=== PATIENT | male | born 1990 | race Caucasian/White ===

== ENCOUNTER 2017-08-18 12:14 | Emergency (ER) | payer SELFPAY ==
[2017-08-18 12:16] VITALS: BP 139/69; PULSE 91; RESP 18; TEMP 36.4; O2SAT 98; BMI 20.9
--- NOTE | 2017-08-18 12:28 | RAD_ITS ---
STUDY: X-RAY - RIGHT HAND, ATTENTION 3rd FINGER REASON FOR EXAM: Male, 27 years old. RT MIDDLE FINGER, CAUGHT HAND IN [facility], [facility]. TECHNIQUE: 3 view(s) of the finger were obtained. COMPARISON: None. FINDINGS: Normal metacarpal head. Normal metacarpophalangeal joint. Normal proximal phalanx. Normal middle phalanx. There is a fracture at the tip of the distal phalanx with overlying soft tissue defect and swelling. Normal proximal interphalangeal joint. Normal distal interphalangeal joint. RAD/Finger(s) Min 2 Views IMPRESSION: Distal phalangeal fracture. Electronically Signed: John Castellanos MD at 12:53 EDT Tel , Service support ,
[2017-08-18] MEDS: Bupivacaine Mpf 0.5% 30 ML VIAL INFILT (12:40)
[2017-08-18] MEDS: Ondansetron 4 MG/2 ML Vial IV (13:01)
[2017-08-18] MEDS: Morphine 4 MG/ML Syringe IV (13:01)
[2017-08-18] MEDS: Cefazolin 1 GM/50 ML BAG IV (13:18)
--- NOTE | 2017-08-18 14:00 | ED.VISSUMM ---
- ER Visit Summary Date of Service: 08/18/17 Chief Complaint: Laceration History of Present Illness: The patient is a 27 M with no primary care physician. He is left-hand dominant. He reports that he reached under the lawnmower while it was running and cut his right middle finger. He has throbbing pain is 10 out of 10 at worst and 8 out of 10 currently. Is worsened by movement and relieved by rest. He does have paresthesias here. His tetanus is up-to-date. Physical Examination: Vitals: Stable. Afebrile. General: Well-nourished and well-developed. Head: Normocephalic atraumatic. Neck: Supple, no lymphadenopathy. No JVD. Nontender. Cardiovascular: Regular rate and rhythm. No murmurs. Respiratory: No respiratory distress. Clear to auscultation bilaterally. Abdominal: Soft, nontender, nondistended, normal bowel sounds. No guarding, rebound, or peritoneal signs. Back: Nontender. Extremities: Near amputation of the finger pad of his right middle finger. There is a 2 cm laceration with a 1 cm connecting stalk. The tissue is not dusky. Skin: Normal color, no rash. Neurologic: Alert and oriented ?3. Cranial nerves II through XII are intact. Normal strength and sensation. Psych: Normal affect. Test Results: X-ray does show a minimal tuft fracture. Emergency Department Course and Treatment: Patient had an IV placed. He was given morphine and Zofran IV. He was given a dose of Ancef IV. He had his wound anesthetized and repaired. He tolerated it well. Treatment Plan: The patient was discussed with Dr. Travis, a hand surgeon at [facility], who looked at the x-ray and pictures of the laceration. There is concerned that this tissue would not be viable. Patient will be discharged with [place] and Keflex. Instructed to follow-up with the hand surgeon tomorrow for repeat exam. Return to the emergency department for any worsening symptoms. Disposition: To home in improved and stable condition. Impression: 1. Partial amputation right middle fingertip, 2 cm, repaired. Procedure note: Wound was cleansed with chlorhexidine soap. Anesthetized with bupivacaine using a digital block. Copiously irrigated with normal saline. Wound was explored multiple pieces of grass were removed. It was closed with 6 simple interrupted 4-0 ethilon sutures. The patient tolerated it well. This note was generated with [employer] dictation software. It may contain incorrect words, spelling, and punctuation that were not noted in review of the chart prior to signing ED Disposition - Plan for ED Patient: Chief Complaint: Laceration Instructions: ED Fx Finger Open Prescriptions: Cephalexin [Keflex] 500 mg PO Q6 #40 capsule Hydrocodone/Acetaminophen [[place] 5-325 Tablet] 1 - 2 each PO 4X/DAY PRN PRN 5 Days #20 tablet PRN Reason: Pain Referrals: Doctor,Your [STAFF PHYSICIAN] - 3-5 Days
--- NOTE | 2017-08-18 14:03 | ED.DCSUM_ITS ---
- ER Visit Summary Date of Service: 08/18/17 Chief Complaint: Laceration History of Present Illness: The patient is a 27 M with no primary care physician. He is left-hand dominant. He reports that he reached under the lawnmower while it was running and cut his right middle finger. He has throbbing pain is 10 out of 10 at worst and 8 out of 10 currently. Is worsened by movement and relieved by rest. He does have paresthesias here. His tetanus is up-to-date. Physical Examination: Vitals: Stable. Afebrile. General: Well-nourished and well-developed. Head: Normocephalic atraumatic. Neck: Supple, no lymphadenopathy. No JVD. Nontender. Cardiovascular: Regular rate and rhythm. No murmurs. Respiratory: No respiratory distress. Clear to auscultation bilaterally. Abdominal: Soft, nontender, nondistended, normal bowel sounds. No guarding, rebound, or peritoneal signs. Back: Nontender. Extremities: Near amputation of the finger pad of his right middle finger. There is a 2 cm laceration with a 1 cm connecting stalk. The tissue is not dusky. Skin: Normal color, no rash. Neurologic: Alert and oriented ?3. Cranial nerves II through XII are intact. Normal strength and sensation. Psych: Normal affect. Test Results: X-ray does show a minimal tuft fracture. Emergency Department Course and Treatment: Patient had an IV placed. He was given morphine and Zofran IV. He was given a dose of Ancef IV. He had his wound anesthetized and repaired. He tolerated it well. Treatment Plan: The patient was discussed with Dr. Travis, a hand surgeon at [facility], who looked at the x-ray and pictures of the laceration. There is concerned that this tissue would not be viable. Patient will be discharged with [place] and Keflex. Instructed to follow-up with the hand surgeon tomorrow for repeat exam. Return to the emergency department for any worsening symptoms. Disposition: To home in improved and stable condition. Impression: 1. Partial amputation right middle fingertip, 2 cm, repaired. Procedure note: Wound was cleansed with chlorhexidine soap. Anesthetized with bupivacaine using a digital block. Copiously irrigated with normal saline. Wound was explored multiple pieces of grass were removed. It was closed with 6 simple interrupted 4 -0 ethilon sutures. The patient tolerated it well. This note was generated with [employer] dictation software. It may contain incorrect words, spelling, and punctuation that were not noted in review of the chart prior to signing ED Disposition - Plan for ED Patient: Chief Complaint: Laceration Instructions: ED Fx Finger Open Prescriptions: Cephalexin [Keflex] 500 mg PO Q6 #40 capsule Hydrocodone/Acetaminophen [[place] 5-325 Tablet] 1 - 2 each PO 4X/DAY PRN PRN 5 Days #20 tablet PRN Reason: Pain Referrals: Doctor,Your [STAFF PHYSICIAN] - 3-5 Days
[2017-08-18 14:43] VITALS: BP 128/70; PULSE 84; RESP 18
== END 2017-08-18 14:45 | disposition home or self-care (01) ==
PROVIDERS: Emergency Provider Emergency Medicine
DX: S68.122A Partial traumatic metacarpophalangeal amputation of right middle finger, initial encounter (principal); S62.632A Displaced fracture of distal phalanx of right middle finger, initial encounter for closed fracture; W26.8XXA Contact with other sharp object(s), not elsewhere classified, initial encounter; Y93.9 Activity, unspecified; Y92.9 Unspecified place or not applicable
CPT/HCPCS: 12001; 73140; 96365; 96374; 96375; 99284; A4216; J2405

== ENCOUNTER → 2019-11-26 14:15 | Outpatient (CLI) | payer MEDICARE, SELFPAY | PROVIDERS: Visit Provider Family Medicine | DX: Z11.59 Encounter for screening for other viral diseases (principal) | CPT/HCPCS: 87635; U0003 ==

== ENCOUNTER → 2019-12-30 10:00 | Outpatient (CLI) | payer MEDICARE, SELFPAY | PROVIDERS: Referring Provider Family Medicine; Visit Provider Family Medicine | DX: Z03.818 Encounter for observation for suspected exposure to other biological agents ruled out (principal) | CPT/HCPCS: 87635; U0003 ==

== ENCOUNTER → 2020-02-12 14:52 | Outpatient (CLI) | payer MEDICARE, SELFPAY | PROVIDERS: Referring Provider Family Medicine; Visit Provider Family Medicine | DX: Z03.818 Encounter for observation for suspected exposure to other biological agents ruled out (principal) | CPT/HCPCS: 87635; U0003 ==

== ENCOUNTER → 2020-02-15 07:45 | Outpatient (REF) | payer MEDICARE, SELFPAY | LOC: LABSPEC 07:45 | PROVIDERS: PCP Family Medicine; Referring Provider Family Medicine; Visit Provider Family Medicine | DX: U07.1 COVID-19 (principal) | CPT/HCPCS: 87635; U0003 ==

== ENCOUNTER → 2020-05-20 12:30 | Outpatient (CLI) | payer MEDICARE, SELFPAY | PROVIDERS: PCP Family Medicine; Visit Provider Family Medicine | DX: Z23 Encounter for immunization (principal) | CPT/HCPCS: 87635; U0005; U0003 ==

== ENCOUNTER → 2021-03-13 11:20 | Outpatient (CLI) | payer SELFPAY ==
--- NOTE | 2021-03-13 13:41 | US_ITS ---
STUDY: SCROTUM ULTRASOUND REASON FOR EXAM: Male, 30 years old. TESTICULAR PAIN TECHNIQUE: Ultrasound evaluation of the scrotum was performed with color Doppler and static montgomery-scale imaging. COMPARISON: None. FINDINGS: RIGHT TESTICLE INTRATESTICULAR: There is a normal size of the right testicle. There is a homogenous echotexture. There is normal arterial and normal venous vascularity. There is no demonstrated right testicular mass or cyst. EXTRATESTICULAR: Localized enlargement of the epididymal tail. There is increased (hyperemic) vascularity of the epididymal tail. There is no demonstrated epididymal cystic structure. There is no demonstrated hydrocele. There is no demonstrated varicocele. There is no demonstrated extratesticular mass or cyst. LEFT TESTICLE INTRATESTICULAR: There is a normal size of the left testicle. There is a homogenous echotexture. There is normal arterial and normal venous vascularity. There is no demonstrated left testicular mass or cyst. EXTRATESTICULAR: The epididymis is normal in size. There is normal vascularity of the epididymis. There is no demonstrated epididymal cystic structure. There is no demonstrated hydrocele. There is no demonstrated varicocele. There is no demonstrated extratesticular mass or cyst. US/Testicular with Arterial Flow IMPRESSION: Localized thickening and hyperemia of right epididymal tail suggesting epididymitis. Given localized nature, follow-up ultrasound recommended to ensure involution. Electronically Signed: Howie Lucero MD ([place]) at 15:00 EST , Service support ,
--- NOTE | 2021-03-13 13:46 | US_ITS ---
EXAM: US PELVIS TRANSABDOMINAL, urinary bladder CLINICAL INDICATION: HEMATURIA UNSPECIFIED TECHNIQUE: Real-time complete pelvic ultrasound with image documentation. This report was created using [employer] report generation technology. COMPARISON: None. FINDINGS: PROSTATE: Prostate calcifications. BLADDER: Unremarkable as visualized, although not well distended on prevoid images. No significant post void residual volume following voiding. US/Post Void Residual Bladder IMPRESSION: No bladder calculi or significant bladder wall thickening seen. Electronically Signed: Howie Lucero MD ([place]) at 15:04 EST , Service support ,
[2021-03-13 16:58] LABS: HIV - WCH Non-Reactive (Nonreactive)
[2021-03-13 17:02] LABS: Chlamydia Trachomatis by PCR POSITIVE (Negative); Neisserai gonorrhoeae by PCR Negative (Negative); Probe Check PASS; Sample Adequacy Control PASS; Specimen Processing Control PASS
== END ==
PROVIDERS: PCP Family Medicine; Visit Provider Nurse Practitioner Family
DX: N50.811 Right testicular pain (principal); R31.9 Hematuria, unspecified; N50.89 Other specified disorders of the male genital organs
CPT/HCPCS: 36415; 51798; 76870; 86703; 87491; 87591; 93976

== ENCOUNTER 2021-03-14 11:29 | Emergency (ER) | payer OTHER, SELFPAY ==
[2021-03-14 11:29] VITALS: BP 147/92; PULSE 116; RESP 18; TEMP 36.4; O2SAT 97; BMI 21.1
--- NOTE | 2021-03-14 12:32 | EX.ED.DYSGE1 ---
HPI History of Present Illness Chief Complaint: Complaint Informant: patient Narrative Narrative: 30-year-old male presenting to the emergency room with a chief complaint of testicular pain. He tells me that 6 days ago he began to have a hard mass on his right testicle that is painful. He states that yesterday he went to a doctor's group thinking there will be a urologist there and saw a nurse practitioner who sent him up to the hospital to get an testicular and bladder ultrasound. He tells me that it demonstrated a large mass and he is trying to be proactive and get this cut out. He states that he called Dr. Nuñez's office today and was aggressive with them and they told him to come to emergency. He denies any fevers. He is sexually active. PFSH PFSH Medical History no medical history Home Medications cephalexin 500 mg PO Q6 #40 capsule 08/18/17 [Rx Last Taken Unknown] hydrocodone-acetaminophen [[place] 5-325 Tablet] 1 - 2 ea PO 4X/DAY PRN PRN 5 Days #20 tab 08/18/17 [Rx Last Taken Unknown] doxycycline monohydrate 100 mg PO BID #20 capsule 03/14/21 [Rx Last Taken Unknown] ibuprofen 600 mg PO Q8H PRN PRN #20 tablet 03/14/21 [Rx Last Taken Unknown] Allergy/AdvReac Type Severity Reaction Status Date / Time No Known Allergies Allergy Verified 03/14/21 11:31 Social History (Updated 03/14/21 @ 12:[address] Dick Adame, DO) current gender identity: male Smoking Status: Current every day smoker tobacco type: cigarettes ROS ROS ED Constitutional Constitutional ED: Denies chills, fever(s) or weight loss Eyes Eyes: Denies change in vision or diplopia ENT ENT ED: Denies ear pain, rhinorrhea or sore throat Cardiovascular Cardiovascular: Denies chest pain, orthopnea, palpitations or racing heartbeat Respiratory/Chest Respiratory/Chest: Denies cough, dyspnea or orthopnea Gastrointestinal Gastrointestinal: Denies abdominal pain, diarrhea, nausea or vomiting Genitourinary Genitourinary ED: Reports other Details: Testicular pain ; Denies dysuria, hematuria or urinary frequency Musculoskeletal Musculoskeletal: Denies arthralgias or myalgias Integumentary Denies abscess or rash Neurologic Neurologic: Denies headache(s) or weakness Psychiatric Psychiatric: Denies anxiety, depression, suicidal ideation or suicidal thoughts Endocrine Endocrinology: Denies polydipsia, polyphagia or polyuria Allergic/Immunologic Allergic/Immunologic ED: Denies mouth swelling, tongue swelling or urticaria EXAM Physical Exam Const Vital Signs: 03/14/21 11:29 Temperature 97.5 F L Temperature Source Temporal Pulse Rate 116 H Respiratory Rate 18 Blood Pressure 147/92 H Blood Pressure Mean 110 Pulse Ox 97 Oxygen Delivery Method Room Air Positive well nourished and well developed General Appearance ED: well developed HEENT Reports normocephalic, head/scalp atraumatic, TM's clear and moist mucous membranes Negative for trauma Tympanic Membrane ED: Yes TM's clear Eyes PERRL and EOMs intact bilaterally Neck no lymphadenopathy, supple and no JVD Resp normal respiratory effort and clear to auscultation bilaterally Cardio regular rate, regular rhythm and no murmurs GI normal to inspection, nondistended, normoactive bowel sounds and non-tender Palpation: soft Back/Spine no CVA tenderness and normal ROM Extremity normal to inspection General Extremety ED: Negative for edema General Extremity: Negative for edema Neuro oriented x3 and CN's II-XII intact bilaterally Sensorium / Orientation: alert Motor Exam: strength 5/5 throughout Psych mental status grossly normal Mood & Affect: Negative for depressed or tearful Skin no rashes or lesions noted and no wounds MDM MDM MDM Narrative Medical decision making narrative: I reviewed his testicular ultrasound which demonstrates epididymitis. He also had chlamydial testing which was positive but his gonorrhea was negative. Patient will be is prescribed doxycycline and is to refrain from sexual activity until his next test is negative Discharge Plan Triage Chief Complaint: Complaint ED Provider: Dick Adame Dx/Rx/DC Orders Clinical Impression: Acute epididymitis, Chlamydia infection Instructions: ED Epididymitis Prescriptions: New doxycycline monohydrate 100 MG capsule 100 mg PO BID Qty: 20 RF: 0 ibuprofen 600 MG tablet 600 mg PO Q8H PRN PRN (Reason: pain) Qty: 20 RF: 0 No Action hydrocodone-acetaminophen [[place]] 1 EACH tablet 1 - 2 ea PO 4X/DAY PRN PRN (Reason: Pain) 5 Days Qty: 20 RF: 0 cephalexin 500 MG capsule 500 mg PO Q6 Qty: 40 RF: 0 Primary Care Provider: Care Physician,No Primary Referrals: Talib Nuñez MD [STAFF PHYSICIAN] - As Needed Activity Restrictions/Additional Instructions: Please use good scrotal support-I recommend 2 pairs of briefs. Ice will help. Please refrain from sexual activity until you obtain a repeat chlamydial test that is negative Disposition Disposition: Home, Self Care
== END 2021-03-14 13:02 | disposition home or self-care (01) ==
PROVIDERS: Emergency Provider Emergency Medicine
DX: A56.19 Other chlamydial genitourinary infection (principal); F17.210 Nicotine dependence, cigarettes, uncomplicated
CPT/HCPCS: 99282

== ENCOUNTER 2021-04-26 09:56 | Outpatient (CLI) | payer SELFPAY ==
--- NOTE | 2021-04-26 10:07 | US_ITS ---
EXAM: US SCROTUM : 1990 CLINICAL INDICATION: EPIDIDYMITIS TECHNIQUE: Realtime ultrasound of the testicles was performed with grayscale and Color Doppler analysis. This report was created using [employer] report [employer] technology. COMPARISON: None. FINDINGS: RIGHT TESTICLE: The right testicle measures 4.2 x 4.4 x 2.5 cm. Normal in size and echotexture. No focal lesion. Normal blood flow is present. LEFT TESTICLE: The left testicle measures 3.2 x 4.2 x 2.2 cm. Normal in size and echotexture. No focal lesion. Normal blood flow is present. EPIDIDYMIDES: The right epididymal head measures 0.9 x 0.6 x 1.0 cm. There is a 2 x 2 mm epididymal cyst. The left epididymal head measures 1.1 x 1.0 x 0.9 cm. Normal color Doppler flow pattern in the epididymis. SCROTUM: There is a small left-sided hydrocele. No varicocele. US/Testicular with Arterial Flow IMPRESSION: Small left-sided hydrocele. There is no evidence of torsion. at 0244 Reported and signed by: Zack Pinto MD Electronically Signed: Zack Pinto MD at 2:43 EST ,
== END 2021-04-26 23:59 | disposition home or self-care (01) ==
PROVIDERS: PCP Family Medicine; Referring Provider Family Medicine; Visit Provider Family Medicine
DX: N45.1 Epididymitis (principal)
CPT/HCPCS: 76870; 93976